=== PATIENT | male | born 1965 | race Caucasian/White ===

== ENCOUNTER 2017-07-18 11:11 | Day surgery (SDC) | payer OTHER ==
[~2017-07-18] VITALS: Ht 193 cm; Wt 132.8 kg
[2017-07-18 12:08] VITALS: Ht 193 cm; Wt 132.8 kg
[2017-07-18] MEDS ORDERED: PROPOFOL 20 ML ONE ×2 (12:14→13:43)
[2017-07-18] MEDS ORDERED: MIDAZOLAM 1 MG/ML 2 ML INJ ONE (12:15)
[2017-07-18] MEDS ORDERED: DOXEPIN PO (12:15)
[2017-07-18] MEDS ORDERED: AMLODIPINE PO (12:15)
[2017-07-18] MEDS ORDERED: FENTAnyl 50 MCG/ML VIAL ONE (12:15)
[2017-07-18] MEDS ORDERED: ABILIFY (12:15)
[2017-07-18] MEDS ORDERED: CYMBALTA PO (12:15)
[2017-07-18] MEDS ORDERED: XANAX PO (12:15)
[2017-07-18 13:07] VITALS: BP 119/66; PULSE 73; RESP 16
--- NOTE | 2017-07-18 13:41 | OPPN ---
Date/Time of Note Date/Time of Note DATE: 07/18/17 TIME: 13:39 Operative Report Preoperative Diagnosis Screening Postoperative Diagnosis Poor prep and inadequate examination Internal hemorrhoids Operation/Procedure Performed Colonoscopy Provider: NINO DILLARD MD Anesthesia Type: MAC Estimated blood loss: none Transfusion Required: no Specimen: none Grafts/Implants: none Complications: no NINO DILLARD MD Jul 18, 2017 13:41
[2017-07-18 14:15] VITALS: BP 113/63; PULSE 72; RESP 12
--- NOTE | 2017-07-18 16:41 | GILP ---
DATE OF PROCEDURE: 07/18/2017 PROCEDURE PERFORMED: Colonoscopy. SURGEON: Jess Rangel MD PREOPERATIVE DIAGNOSIS: Screening colonoscopy. POSTOPERATIVE DIAGNOSIS: 1. Poor prep, making the exam inadequate. 2. Internal hemorrhoids. INDICATION: Mr. Jl Loaiza is a 52-year-old male patient who was scheduled for screening colonoscopy. The procedure and possible complications were well explained to the patient. He understood and consented to the procedure. DESCRIPTION OF PROCEDURE: Under the influence of anesthesia, the colonoscope was carefully introduced in the rectum. Under direct vision, it was advanced all the way to the cecum. FINDINGS: Patient had poor prep, making the exam very inadequate. Patient was noted to have internal hemorrhoids. He tolerated the procedure very well, and there was no complication from the procedure. At the end of the procedure, he was awake, with stable vital signs, and he was discharged home in the care of his family. IMPRESSION: 1. Colonoscopy all the way to the cecum. 2. Poor prep, making the exam inadequate. 3. Internal hemorrhoids. PLAN: The patient will need repeat colonoscopy with better preparation within a year. Dictated By: MD MICKI Velez/max/leyda /Document#: [id number] CC: Jess Rangel MD;*[facility]*
== END 2017-07-18 15:49 | disposition home or self-care (01) ==
LOC: GIL 11:11
PROVIDERS: ATTEND Internal Medicine Gastroenterology
DX: Z12.11 Encounter for screening for malignant neoplasm of colon (principal); K64.8 Other hemorrhoids; I10 Essential (primary) hypertension; J45.909 Unspecified asthma, uncomplicated
CPT/HCPCS: 45378; J2250; J3010; Z7610

== ENCOUNTER 2017-09-19 15:09 | Day surgery (SDC) | payer OTHER ==
[~2017-09-19] VITALS: Ht 193 cm; Wt 129.1 kg
[~2017-09-19 15:09] MED LIST: ABILIFY; AMLODIPINE PO; CYMBALTA PO; DOXEPIN PO; XANAX PO
[2017-09-19 15:47] VITALS: Ht 193 cm; Wt 129.1 kg
[2017-09-19] MEDS ORDERED: NAPROXEN (15:54)
[2017-09-19 16:17] VITALS: BP 124/74; PULSE 89; RESP 18
[2017-09-19] MEDS ORDERED: PROPOFOL 20 ML ONE (16:22)
--- NOTE | 2017-09-19 16:59 | OPPN ---
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
[2017-09-19 17:19] VITALS: BP 147/80; RESP 14
--- NOTE | 2017-09-19 20:11 | GILP ---
DATE OF PROCEDURE: 09/19/2017 NAME OF PROCEDURE: Colonoscopy. SURGEON: Jess Rangel MD PREOPERATIVE DIAGNOSIS: Screening colonoscopy. POSTOPERATIVE DIAGNOSES: 1. Colonoscopy all the way to the cecum. 2. Internal hemorrhoids. 3. No colon neoplasm was identified. INDICATION FOR THE PROCEDURE: Mr. Jl Loaiza is a 52-year-old male patient who was scheduled fo r screening colonoscopy. The procedure and possible complications are well explained to the patient, he understood and consen rosana to the procedure. DESCRIPTION OF PROCEDURE: Under the influence of anesthesia, the colonoscope was carefully introduc ed in the rectum and under direct vision, it was advanced all the way to the cecum. FINDINGS: The patient had internal hemorrhoids. No colon neoplasm was identified. He tolerated the procedure very well and there was no complication from the procedure. At the end o f the procedure, he was awake with stable vital signs and he was discharged home to the care of his family. IMPRESSION: 1. Colonoscopy all the way to the cecum. 2. Internal hemorrhoids. 3. No colon neoplasm was identified. PLAN: Next screening colonoscopy in 10 years. Dictated By: JESS SWEET/SHARDA Conf#: [id number] DID#: [id number]
== END 2017-09-19 19:11 | disposition home or self-care (01) ==
LOC: GIL 15:09
PROVIDERS: ATTEND Internal Medicine Gastroenterology
DX: Z12.11 Encounter for screening for malignant neoplasm of colon (principal); K64.8 Other hemorrhoids; E66.9 Obesity, unspecified; Z68.34 Body mass index [BMI] 34.0-34.9, adult
CPT/HCPCS: 45378; Z7610